=== PATIENT | female | born 2000 | race Caucasian/White ===

== ENCOUNTER 2023-10-08 15:15 | Emergency (ER) | payer MEDICAID, SELFPAY ==
--- NOTE | 2023-10-08 15:18 | ED_ITS ---
HPI - Psych General Chief Complaint: Psychiatric Symptoms Stated Complaint: crisis eval Time Seen by Provider: 10/08/23 16:11 Related Data Allergies Allergy/AdvReac Type Severity Reaction Status Date / Time No Known Allergies Allergy Verified 10/08/23 15:23 [facility] Social History Social History Advance Directives: No Advance Directives Information Provided: No Guardian: No Physical Exam 2 Vital Signs: Vital Signs: Last Vital Signs Temp 99.4 F 10/08/23 15:19 Pulse 86 10/08/23 15:19 Resp 18 10/08/23 15:19 BP 109/79 10/08/23 15:19 Pulse Ox 97 10/08/23 15:19 O2 Del Method Room Air 10/08/23 15:19 BMI result Body Mass Index 23.8 Course Course Course Narrative: This is a rapid medical exam: Additional HPI, ROS, PE not included below will be deferred to primary provider. Patient is a 23-year-old female with no reported past medical history presenting to the emergency department with complaint of suicidal thoughts over the past three months, requesting a crisis evaluation. Reports thoughts of plans but denies specific plan. History of self harm behavior (cutting). Denies homicidal ideation. Admits to marijuana use, denies other drug use. Plan: medical clearance, CARE team eval This is a duplicate chart. Patient seen and dispositioned by Dr. Salcedo on 10/08/23. Medical Decision Making Lab Data 10/08/23 15:52 10/08/23 15:52 Labs: Lab Results 10/08/23 10/08/23 10/08/23 Range/Units 15:47 15:51 15:52 WBC 10.0 (4.8-10.8) X10*3/uL RBC 4.99 (4.20-5.50) X10*6/uL Hgb 13.9 (12.0-16.0) g/dl Hct 42.4 (37.0-47.0) % MCV 85.0 (80.0-98.0) fL MCH 27.9 (27.0-33.0) pg MCHC 32.8 (31.0-35.0) g/dl RDW 14.7 (11.0-16.0) % Plt Count 156 L (160-400) X10*3/uL MPV 13.7 H (9.4-12.3) fL Immature Gran % (Auto) 0.2 (0.0-0.4) % Neut % (Auto) 66.9 (45-73) % Lymph % (Auto) 24.0 (20-40) % [place] % (Auto) 7.3 (2-11) % Eos % (Auto) 1.0 (0-4) % Baso % (Auto) 0.6 (0-2) % Lymph # (Auto) 2.4 (1.2-4.9) X10*3/uL [place] # (Auto) 0.7 (0.1-1.2) X10*3/uL Eos # (Auto) 0.1 (0.0-0.4) X10*3/uL Baso # (Auto) 0.1 (0.0-0.2) X10*3/uL Abs Immat Gran (auto) 0.02 (0.00-0.03) X10*3/uL Absolute Neuts (auto) 6.7 (2.0-8.3) x10*3/uL Absolute Nucleated RBC 0.000 (0.0-0.012) X10*3/uL Nucleated RBC % (auto) 0.0 (0.0-0.2) /100WBC Smear Tech's Comments VERIFIED Sodium 142 (135-145) mmol/L Potassium 3.2 L (3.3-5.1) mmol/L Chloride 105 (96-108) mmol/L Carbon Dioxide 24 (22-29) mmol/L Anion Gap 16 (12-20) BUN 8 L (9-16) mg/dL Creatinine 0.96 (0.5-1.4) mg/dL Estim Creat Clear Calc 91.1 Estimated GFR > 60 Random Glucose 101 (60-115) mg/dL Calcium 9.7 (8.4-10.2) mg/dL Beta HCG, Quant < 2 mIU/mL Urine Color Yellow Urine Appearance Cloudy Urine pH 5.0 (5.0-9.0) Ur Specific [place] >= 1.030 H (1.005-1.025) Urine Protein Trace (Neg-Trace) mg/dL Urine Glucose (UA) Negative (Negative) mg/dL Urine Ketones 15 (Negative) mg/dL Urine Blood Negative (Negative) Urine Nitrite Negative (Negative) Ur Leukocyte Esterase Small (1+) H (Negative) Urine RBC 0-2 (0-2) /HPF Urine WBC 0-5 (0-5) /HPF Ur Squamous Epith Cells 3-5 (0-2) /HPF Urine Bacteria Trace (None Seen) Hyaline Casts 0-2 (0-2) /LPF Salicylates < 5.0 L (15-30) mg/dL Urine Opiates Screen Not Detected (Not Detect) Urine Fentanyl Screen Not Detected (Not Detect) Acetaminophen < 3 (<30) mcg/mL Ur Barbiturates Screen Not Detected (Not Detect) Ur Phencyclidine Scrn Not Detected (Not Detect) Ur Amphetamines Screen Not Detected (Not Detect) U Benzodiazepines Scrn Not Detected (Not Detect) Urine Cocaine Screen Not Detected (Not Detect) U Marijuana (THC) Screen POSITIVE H (Not Detect) Ethyl Alcohol < 10 mg/dL COVID-19 (EL) Negative (Negative) COVID-19 Clin Com See Note Discharge Plan Discharge Clinical Impression: Acute anxiety Patient Disposition: Home, Self-Care Instructions: Anxiety (ED) Referrals: Physician,None [Primary Care Provider] - (Close follow-up as per care team) Interventions: [place]-Suicide Risk Severity Scale Last Done: 10/08/23 15:49 ED Discharge Assessment Last Done: 10/08/23 17:25 Discharge Date/Time: 10/08/23 17:38
[2023-10-08 15:19] VITALS: BP 109/79; PULSE 86; RESP 18; TEMP 37.4; O2SAT 97; BMI 23.8
--- NOTE | 2023-10-08 15:38 | MHC.EDTECH ---
Patient belongings locked in locker number 1
--- NOTE | 2023-10-08 15:38 | PC.NURSE ---
Patient upset wants to know when she's going to be evaluated by care team. Called care team needs a urine and labs before they will see her. Security notified of her yelling profanities and stating she needs to see her aunt right now!! Explained to patient she needs labs and urine before she will be seen by the care team.
[2023-10-08 16:01] LABS: Appearance Urine Cloudy; Color Urine Yellow; Glucose Urine UA Negative (Negative); Leukocyte Esterase Urine Small (1+) (Negative); Nitrite Urine Negative (Negative); Specific Gravity - Urine >= 1.030 (1.005-1.025); UMIC TRIGGER UACC YES; Urine Blood Negative (Negative); Urine Ketones 15 mg/dL (Negative); Urine Protein Trace mg/dL (Neg-Trace)
[2023-10-08 16:07] LABS: Amphetamine Screen Urine Not Detected (Not Detect); Barbiturates, Urine Not Detected (Not Detect); Benzodiazepines Screen Urine Not Detected (Not Detect); Cannabinoid Screen Urine POSITIVE (Not Detect); Cocaine Screen Urine Not Detected (Not Detect); Fentanyl, urine Not Detected (Not Detect); Opiate Screen Urine Not Detected (Not Detect); Phencyclidine Screen Urine Not Detected (Not Detect)
[2023-10-08 16:13] LABS: Hematocrit 42.4 % (37.0-47.0); Red Cell Distribution Width 14.7 % (11.0-16.0); SCAN SMEAR FLAG 1
[2023-10-08 16:14] LABS: COVID-19 Test Negative (Negative); IDNOW Serial# 152EDE1D
[2023-10-08 16:14] LABS: Bacteria Urine Trace (None Seen); Hyaline Casts Urine 0-2 /LPF (0-2); RBC Urine 0-2 /HPF (0-2); UACC Culture Trigger YES; WBC Urine 0-5 /HPF (0-5)
[2023-10-08 16:15] LABS: Basophils Absolute Auto 0.1 X10*3/uL (0.0-0.2); Basophils Percent Auto 0.6 % (0-2); Eosinophils Absolute Auto 0.1 X10*3/uL (0.0-0.4); Hemoglobin 13.9 g/dl (12.0-16.0); Imm Gran Abs Auto 0.02 X10*3/uL (0.00-0.03); Imm Gran Pct Auto 0.2 % (0.0-0.4); Lymphocytes Absolute Auto 2.4 X10*3/uL (1.2-4.9); MANUAL DIFF FLAG SCAN; Mean Corpuscular HGB Conc 32.8 g/dl (31.0-35.0); Mean Corpuscular Hemoglobin 27.9 pg (27.0-33.0); Mean Platelet Volume 13.7 fL (9.4-12.3); Monocytes Absolute Auto 0.7 X10*3/uL (0.1-1.2); Monocytes Percent Auto 7.3 % (2-11); Neutrophils Absolute Auto 6.7 x10*3/uL (2.0-8.3); Neutrophils Percent Auto 66.9 % (45-73); Platelet Count 156 X10*3/uL (160-400); Red Blood Count 4.99 X10*6/uL (4.20-5.50)
[2023-10-08 16:17] LABS: Acetaminophen LAB < 3 mcg/mL (<30); PLT ABN DIST 1; Salicylate < 5.0 mg/dL (15-30)
[2023-10-08 16:25] LABS: Anion Gap 16 (12-20); Blood Urea Nitrogen 8 mg/dL (9-16); Calcium 9.7 mg/dL (8.4-10.2); Carbon Dioxide 24 mmol/L (22-29); Chloride 105 mmol/L (96-108); Creatinine Clr Calc Pharmacy 91.1; Estimated Glomerular Filt Rate > 60; Ethanol < 10 mg/dL; Glucose Random 101 mg/dL (60-115); HCG Quantitative < 2 mIU/mL; Potassium 3.2 mmol/L (3.3-5.1); Sodium 142 mmol/L (135-145)
--- NOTE | 2023-10-08 16:33 | ED_ITS ---
HPI - Psych General Chief Complaint: Psychiatric Symptoms Stated Complaint: crisis eval Time Seen by Provider: 10/08/23 16:11 History of Present Illness HPI Narrative: Patient is a 23-year-old female presents today with question thoughts of hurting herself. Stated to nursing that the thoughts has been getting worse over the last 3 months. Patient denies any suicidal homicidal ideation at this time. Has no specific plan denies using any recreational drugs. She is from home. No fever no chills no chest pain or shortness breath no nausea no vomiting. On no medication. Patient from home. Refused to answer any specific stressors that is causing her problems. Related Data Allergies Allergy/AdvReac Type Severity Reaction Status Date / Time No Known Allergies Allergy Verified 10/08/23 15:23 Review of Systems 2 Review of Systems: No fever no chills no chest pain Yes all other systems are reviewed and are negative [facility] Past Medical History Attestation statement: The following information was validated with the patient. Onset Date is defined in the Problem List Problems that require an onset date and time if occurred within 24 hrs of arrival to the ED Aortic Dissection and Rupture; Neurologic impairment; Cardiopulmonary Arrest; Endotracheal Intubation; Insertion or Replacement of Mechanical Circulatory Assist Device Physical Exam 2 Vital Signs: Vital Signs: Last Vital Signs Temp 99.4 F 10/08/23 15:19 Pulse 86 10/08/23 15:19 Resp 18 10/08/23 15:19 BP 109/79 10/08/23 15:19 Pulse Ox 97 10/08/23 15:19 O2 Del Method Room Air 10/08/23 15:19 BMI result Body Mass Index 23.8 Appearance: Alert. Oriented X3. No acute distress. Eyes: Pupils equal, round and reactive to light. ENT: Pharynx normal. Neck: Normal inspection. Neck supple. No lymph nodes noted. No crepitus CVS: Normal heart rate and rhythm. Pulses normal. Normal S1 and S2 Respiratory: No respiratory distress. Breath sounds normal. No Wheezing. No rales Abdomen: Soft and nontender. No rigidity. No distention. good BS x4 Skin: Skin warm and dry. Normal skin color. Normal skin turgor. Extremities: No lower extremity edema. Neurovascular intact to all extremities. No Lacerations. No Rash Neuro: Oriented X 3. No motor deficit. No sensory deficit. Moving all extermities. No slurred speech. Cranial nerves intact Medical Decision Making Medical Decision Making [facility] Narrative: Patient is 23 years old presents today with having a lot of anxiety. She has not suicidal not homicidal. She denies any fever chills systemic complaints. Patient just wants outpatient help. Was seen by the care team. Will discharge patient home close follow-up on an outpatient basis. Differential Diagnosis Differential Diagnoses: The differential diagnosis associated with the presentation includes Anxiety depression Admission/Observation Consideration of admission/observation: Escalation of care including admission/observation considered No need for admission Lab Data [facility] Lab Attestation statement: I reviewed the patient's lab results. 10/08/23 15:52 10/08/23 15:52 Labs: Lab Results 10/08/23 10/08/23 10/08/23 Range/Units 15:47 15:51 15:52 WBC 10.0 (4.8-10.8) X10*3/uL RBC 4.99 (4.20-5.50) X10*6/uL Hgb 13.9 (12.0-16.0) g/dl Hct 42.4 (37.0-47.0) % MCV 85.0 (80.0-98.0) fL MCH 27.9 (27.0-33.0) pg MCHC 32.8 (31.0-35.0) g/dl RDW 14.7 (11.0-16.0) % Plt Count 156 L (160-400) X10*3/uL MPV 13.7 H (9.4-12.3) fL Immature Gran % (Auto) 0.2 (0.0-0.4) % Neut % (Auto) 66.9 (45-73) % Lymph % (Auto) 24.0 (20-40) % [place] % (Auto) 7.3 (2-11) % Eos % (Auto) 1.0 (0-4) % Baso % (Auto) 0.6 (0-2) % Lymph # (Auto) 2.4 (1.2-4.9) X10*3/uL [place] # (Auto) 0.7 (0.1-1.2) X10*3/uL Eos # (Auto) 0.1 (0.0-0.4) X10*3/uL Baso # (Auto) 0.1 (0.0-0.2) X10*3/uL Abs Immat Gran (auto) 0.02 (0.00-0.03) X10*3/uL Absolute Neuts (auto) 6.7 (2.0-8.3) x10*3/uL Absolute Nucleated RBC 0.000 (0.0-0.012) X10*3/uL Nucleated RBC % (auto) 0.0 (0.0-0.2) /100WBC Smear Tech's Comments VERIFIED Sodium 142 (135-145) mmol/L Potassium 3.2 L (3.3-5.1) mmol/L Chloride 105 (96-108) mmol/L Carbon Dioxide 24 (22-29) mmol/L Anion Gap 16 (12-20) BUN 8 L (9-16) mg/dL Creatinine 0.96 (0.5-1.4) mg/dL Estim Creat Clear Calc 91.1 Estimated GFR > 60 Random Glucose 101 (60-115) mg/dL Calcium 9.7 (8.4-10.2) mg/dL Beta HCG, Quant < 2 mIU/mL Urine Color Yellow Urine Appearance Cloudy Urine pH 5.0 (5.0-9.0) Ur Specific [place] >= 1.030 H (1.005-1.025) Urine Protein Trace (Neg-Trace) mg/dL Urine Glucose (UA) Negative (Negative) mg/dL Urine Ketones 15 (Negative) mg/dL Urine Blood Negative (Negative) Urine Nitrite Negative (Negative) Ur Leukocyte Esterase Small (1+) H (Negative) Urine RBC 0-2 (0-2) /HPF Urine WBC 0-5 (0-5) /HPF Ur Squamous Epith Cells 3-5 (0-2) /HPF Urine Bacteria Trace (None Seen) Hyaline Casts 0-2 (0-2) /LPF Salicylates < 5.0 L (15-30) mg/dL Urine Opiates Screen Not Detected (Not Detect) Urine Fentanyl Screen Not Detected (Not Detect) Acetaminophen < 3 (<30) mcg/mL Ur Barbiturates Screen Not Detected (Not Detect) Ur Phencyclidine Scrn Not Detected (Not Detect) Ur Amphetamines Screen Not Detected (Not Detect) U Benzodiazepines Scrn Not Detected (Not Detect) Urine Cocaine Screen Not Detected (Not Detect) U Marijuana (THC) Screen POSITIVE H (Not Detect) Ethyl Alcohol < 10 mg/dL COVID-19 (EL) Negative (Negative) COVID-19 Clin Com See Note Discharge Plan Discharge Clinical Impression: Acute anxiety Patient Disposition: Home, Self-Care Instructions: Anxiety (ED) Referrals: Physician,None [Primary Care Provider] - (Close follow-up as per care team) Interventions: [place]-Suicide Risk Severity Scale Last Done: 10/08/23 15:49
[2023-10-08 16:35] LABS: SLIDE REVIEW VERIFIED
== END 2023-10-08 17:38 | disposition home or self-care (01) ==
PROVIDERS: Registered Nurse Emergency; Emergency Provider Emergency Medicine Emergency Medical Services
DX: F41.9 Anxiety disorder, unspecified (principal); Z11.52 Encounter for screening for COVID-19
CPT/HCPCS: 36415; 80048; 80143; 80179; 80307; 81001; 81003; 84702; 85025; 87086; 87147; 87635; 99283; 99285; S9485

== ENCOUNTER → 2023-11-10 08:39 | Outpatient (REF) | payer MEDICAID, SELFPAY ==
--- NOTE | 2023-11-10 08:47 | ECG_ITS ---
Test Reason : qtc check Blood Pressure : / mmHG Vent. Rate : 065 BPM Atrial Rate : 065 BPM P-R Int : 148 ms QRS Dur : 148 ms QT Int : 448 ms P-R-T Axes : 005 -51 016 degrees QTc Int : 465 ms Normal sinus rhythm Right bundle branch block Left anterior fascicular block Bifascicular block Abnormal ECG No previous ECGs available Referred By: Margo Burnham Electronically Signed By:WILFRIDO CHURCHILL MD
[2023-11-10 09:38] LABS: Estimated Average Glucose 100 mg/dL; Hemoglobin A1c % 5.1 % (<6.0)
[2023-11-10 09:40] LABS: Basophils Absolute Auto 0.1 X10*3/uL (0.0-0.2); Basophils Percent Auto 0.9 % (0-2); Eosinophils Absolute Auto 0.1 X10*3/uL (0.0-0.4); Eosinophils Percent Auto 0.9 % (0-4); Hematocrit 39.5 % (37.0-47.0); Hemoglobin 12.8 g/dl (12.0-16.0); Imm Gran Abs Auto 0.02 X10*3/uL (0.00-0.03); Imm Gran Pct Auto 0.3 % (0.0-0.4); Lymphocytes Absolute Auto 0.9 X10*3/uL (1.2-4.9); Lymphocytes Percent Auto 16.1 % (20-40); MANUAL DIFF FLAG SCAN; Mean Corpuscular HGB Conc 32.4 g/dl (31.0-35.0); Mean Corpuscular Hemoglobin 28.3 pg (27.0-33.0); Mean Corpuscular Volume 87.2 fL (80.0-98.0); Monocytes Absolute Auto 0.4 X10*3/uL (0.1-1.2); Neutrophils Absolute Auto 4.3 x10*3/uL (2.0-8.3); Neutrophils Percent Auto 74.8 % (45-73); PLT CLUMP 1; Red Blood Count 4.53 X10*6/uL (4.20-5.50); Red Cell Distribution Width 15.4 % (11.0-16.0); SCAN SMEAR FLAG 1
[2023-11-10 09:42] LABS: White Blood Count 5.7 X10*3/uL (4.8-10.8)
[2023-11-10 10:10] LABS: Alanine Aminotransferase 28 U/L (0-31); Albumin Level 4.3 g/dL (3.5-5.0); Alkaline Phosphatase 62 U/L (39-117); Anion Gap 11 (12-20); Aspartate Amino Transferase 35 U/L (5-31); Bilirubin Total 0.9 mg/dL (0.0-1.0); Blood Urea Nitrogen 12 mg/dL (9-16); Calcium 8.5 mg/dL (8.4-10.2); Carbon Dioxide 25 mmol/L (22-29); Chloride 106 mmol/L (96-108); Estimated Glomerular Filt Rate > 60; Glucose Fasting 112 mg/dL (60-99); Magnesium 1.9 mg/dL (1.6-2.6); Potassium 3.5 mmol/L (3.3-5.1); Sodium 138 mmol/L (135-145); Total Protein 7.2 g/dL (6.5-8.0)
[2023-11-10 10:32] LABS: Free T4 (Free Thyroxine) 0.88 ng/dL (0.71-1.85); Thyroid Stimulating Hormone 2.57 uIU/mL (0.32-4.0)
[2023-11-10 10:49] LABS: Vitamin B12 518 pg/mL (200-900)
[2023-11-10 10:59] LABS: Mean Platelet Volume 13.1 fL (9.4-12.3); Platelet Count 126 X10*3/uL (160-400); SLIDE REVIEW VERIFIED
== END ==
LOC: HO.CARD 08:39
PROVIDERS: Visit Provider Psychiatry & Neurology Psychiatry
DX: F33.9 Major depressive disorder, recurrent, unspecified (principal); F41.1 Generalized anxiety disorder
CPT/HCPCS: 36415; 80053; 82306; 82607; 83036; 83735; 84439; 84443; 85025; 93005

== ENCOUNTER → 2023-11-10 08:47 | Outpatient (BNV) | payer MEDICAID, SELFPAY | PROVIDERS: Visit Provider Internal Medicine Cardiovascular Disease | DX: I45.2 Bifascicular block (principal); R94.31 Abnormal electrocardiogram [ECG] [EKG] | CPT/HCPCS: 93010 ==

== ENCOUNTER → 2023-11-16 08:15 | Outpatient (BNV) | payer OTHER, SELFPAY | PROVIDERS: Visit Provider Psychiatry & Neurology Psychiatry | DX: F33.2 Major depressive disorder, recurrent severe without psychotic features (principal); F43.10 Post-traumatic stress disorder, unspecified; F10.10 Alcohol abuse, uncomplicated; F12.10 Cannabis abuse, uncomplicated | CPT/HCPCS: 90837; 99213 ==

== ENCOUNTER 2023-11-21 08:15 | Outpatient (RCR) | payer OTHER, SELFPAY ==
[2023-11-08 13:12] VITALS: BP 81/65; PULSE 84; TEMP 37.3
[2023-11-08 13:18] VITALS: BMI 21.7
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
[2023-11-08 15:00] LABS: Amphetamine Screen Urine Not Detected (Not Detect); Barbiturates, Urine Not Detected (Not Detect); Benzodiazepines Screen Urine Not Detected (Not Detect); Cannabinoid Screen Urine Not Detected (Not Detect); Cocaine Screen Urine Not Detected (Not Detect); Fentanyl, urine Not Detected (Not Detect); Opiate Screen Urine Not Detected (Not Detect); Phencyclidine Screen Urine Not Detected (Not Detect)
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
[2023-11-09 13:05] VITALS: BP 82/63; PULSE 76
[2023-11-10 10:47] VITALS: BP 84/63; PULSE 77
--- NOTE | 2023-11-10 11:23 | PC.NURSE ---
Addendum entered by Marika Varela RN 11/10/23 11:30: D/C paperwork from [facility] showed EKG done on 10/10/23. Normal sinus rhythm with sinus arrhythmia, Right Bundle Brance Block, Left anterior fascicular block, Bifasicular block, minimal voltage criteria for LVH, may be a normal variant. Dr Burnham aware. Original Note: Reviewed with Dr Burnham the following results: EKG: NSR, Right Bundle Brance Block, Left anterior fascicular block, Bifascicular block. Blood pressure on 11/08/23 BP 81/65 P 84. 11/09/23 BP 82/63 P 76, and 11/10/23 BP 84/63 P 77. Patient asymptomatic, she is alert and oriented x4. No Dizziness, No lighheadedness, no nausea, no vomiting. Does not appear to be in any distress. Per Dr Burnham patient to hold Gabapentin and will recheck BP's. Patient does not have any providers including PCP. Soonest available appointment made with New PCP on January 03, 2024 at 1:[address] Martin[address] Burnham aware.
--- NOTE | 2023-11-10 13:02 | HO.PHP ---
PHP staff member faxed over a referral for OP therapy and med management for Tresa. PHP staff member is awaiting a response with the scheduled appointment dates and times.
--- NOTE | 2023-11-10 15:53 | HO.PHP ---
Client's case has been opened and reviewed in treatment team.
--- NOTE | 2023-11-10 23:38 | HO.PHPPROGNO ---
Subjective Subjective Date of Service: 11/10/23 Reason For Visit: MDD Interim History: Patient requested to see provider due to ongoing medication issues. Says after some thought, she would like to proceed with treatment plan as we discussed the other day about decreasing the dose of gabapentin to see if this is impacting her VS. This morning her BP 94/73 and HR 78, after taking her usual gabapentin 300 mg daily in AM. She is agreeable to lowering the dose to 100 mg qAM to see if this is still effective for anxiety without causing dizziness or light headedness, and if helpful could try repeating the dose later in the afternoon for anxiety. She says these symptoms (dizzy lightheadedness) are transient and mild, and says she only does not like experiencing then because it is reminiscent of withdrawal symptoms (from etoh) in the past . She reports her mood has been okay, still low, but not the worse . Anxiety continues to be the main issue. Denies any SI, irritability, or lability. Mood stability rated at a 7 out of 10. Anxiety severity at a 4 out of 10. Sleep variable, appetite and energy are pretty good . Denies any HI, AH, VH. Denies any alcohol or substance use in interim. Medication Compliance: Yes Side effects from medications: No Attending Groups: Yes Review of Systems Acute medical concerns: No Mental Status Exam Mental Status Exam Narrative: mseAlert, oriented, in no acute distress. Calm, cooperative, engaged. No psychomotor agitation or neurovegetative retardation. Eye contact maintained. Mood anxious, affect variable, blunted, mood congruent. Speech normal. Thought process linear, coherent. Thought content related to stressors, denies any helplessness, hopelessness or SI.? No aggressive ideation or HI. No paranoia or delusional content elicited. No evidence of psychosis. Insight and judgment fair-good Diagnostics Vital Signs (24Hr): Vital Signs - 24 hr 11/10/23 10:47 Pulse Rate 77 Blood Pressure 84/63 L BMI result Body Mass Index 21.7 Assessment & Plan Assessment & Plan (1) Major depressive disorder, recurrent severe without psychotic features: Status: Acute Code(s): F33.2 - Major depressive disorder, recurrent severe without psychotic features (2) Post traumatic stress disorder (PTSD): Status: Acute Code(s): F43.10 - Post-traumatic stress disorder, unspecified (3) Cannabis abuse: Status: Acute Code(s): F12.10 - Cannabis abuse, uncomplicated (4) Alcohol abuse: Status: Acute Code(s): F10.10 - Alcohol abuse, uncomplicated Plan start gabapentin 100 mg BID (in am and afternoon) continue gabapentin 300 mg qhs Patient educated on: diagnosis, medication risk/benefits and substance abuse Informed Consent: understands Reason for contiued partial hosp. stay Substantial Risk for: inability to function, rapid decompensation and med/psych decompensation Certification I certify that partial hospital treatment is medically necessary due to the symptoms and problems resulting from the patient's mental illness and the failure to treat the patient at the partial hospital level of care would likely result in the patient requiring inpatient psychiatric care which could not be prevented at a less intensive level of care. Total time managing care of this patient today __30__ minutes. Discharge Plan Discharge Attending provider: Margo Burnham Additional Instructions: New PCP appointment at [address] [place] [phone] Jess Rashid Wednesday January 03, 2024 at 1:00 pm. Office Number [phone]. Referral faxed to [facility], [address] [place] [address], 3rd floor, [facility]. Office Number [phone]. Appointment scheduled with Cardiology for December at 8:00 am. Above the emergency room 3rd floor. Enter the door marked [address] [place] [address]. Medications: New lorazepam 0.5 mg tablet 0.5 mg PO DAILY PRN (Reason: anxiety) Qty: 10 0RF gabapentin 100 mg capsule 100 mg PO BID PRN (Reason: as directed) Qty: 20 0RF Continued melatonin 3 mg Capsule 3 mg PO DAILY@1700 Changed sertraline [Zoloft] 50 mg tablet 75 mg PO DAILY Qty: 45 0RF Discontinued gabapentin 300 mg capsule 300 mg PO DAILY Stand Alone Forms: Patient Portal Discharge page Patient Education: Depression (DC)
--- NOTE | 2023-11-11 08:29 | PC.NURSE ---
Patient has a new PCP appointment at [address] [place] [phone] Jess Rashid Sophia January 03, 2024 at 1:00 pm. Office Number [phone].
--- NOTE | 2023-11-11 08:35 | PC.NURSE ---
Tresa called the program stating she, feels under the weather today and will not be at [facility] today. She reports she has a sore throat. Plans on coming to the program on Tuesday.
[2023-11-14 09:19] VITALS: BP 87/67; PULSE 71
[2023-11-15 12:52] VITALS: BP 86/67; PULSE 74
--- NOTE | 2023-11-15 12:59 | PC.NURSE ---
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 Tresa thinks she was seen at [facility] [place]. Faxed request of records to [facility] [place] and was notified that Tresa has no history of being a patient there. Dr Burnham aware.
--- NOTE | 2023-11-15 22:23 | P.PNPSP_ITS ---
Subjective Subjective Date of Service: 11/15/23 Reason For Visit: MDD Interim History: Patient reporting anxiety has been a little more this AM . Rates anxiety 7 out 10 earlier this AM, currently at a 5 out of 10 now. Mood is good, denies any depressive symptoms. Denies any SI. Sleep, appetite and energy are intact. VS slightly improved with holding 200 mg gabapentin, still running low BP 87/65 pulse 63. She denies any dizziness or lightheadedness. WIll hold remaining gabapentin for tonight just to see if this helps further. Has been utilizing lorazepam0.5 mg prn for groups which has been effective. , Vitamin D insuffiency and thrombocytopenia noted on lab w ork, patient reports she has chronically low platelets noted in past, not been further worked up or treatment. Just letting patient know that SSRI can contribute to low platelets. She did order gummy otc vitamin d 5,000 IU qd as we discussed, and can reduced dose to 2000 IU in a couple months. Medication Compliance: Yes Side effects from medications: No Attending Groups: Yes Review of Systems Acute medical concerns: No Mental Status Exam Mental Status Exam Narrative: Alert, oriented, in no acute distress. Calm, cooperative, engaged. Eye contact improved. Mood anxious, affect variable, mood congruent. Speech normal. Thought process linear, coherent. Thought content related to stressors, denies any helplessness, hopelessness or SI.? No aggressive ideation or HI. No paranoia or delusional content elicited. No evidence of psychosis. Insight and judgment fair-good Diagnostics Vital Signs (24Hr): Vital Signs - 24 hr 11/15/23 12:52 Pulse Rate 74 Blood Pressure 86/67 L BMI result Body Mass Index 21.7 Assessment & Plan Assessment & Plan (1) Major depressive disorder, recurrent severe without psychotic features: Status: Acute Code(s): F33.2 - Major depressive disorder, recurrent severe without psychotic features (2) Post traumatic stress disorder (PTSD): Status: Acute Code(s): F43.10 - Post-traumatic stress disorder, unspecified (3) Cannabis abuse: Status: Acute Code(s): F12.10 - Cannabis abuse, uncomplicated (4) Alcohol abuse: Status: Acute Code(s): F10.10 - Alcohol abuse, uncomplicated Plan increase sertraline to 75 mg qd hold gabapentin 100 mg tomorrow (cont lorazepam) --> check VS tomorrow consider addition of buspirone continue other medications Lab work from 11/10 reviewed - pt started vit D 5000 IU daily EKG results reviewed continue to monitor Patient educated on: diagnosis, medication risk/benefits and substance abuse Informed Consent: understands Reason for contiued partial hosp. stay Substantial Risk for: inability to function and med/psych decompensation Certification I certify that partial hospital treatment is medically necessary due to the symptoms and problems resulting from the patient's mental illness and the failure to treat the patient at the partial hospital level of care would likely result in the patient requiring inpatient psychiatric care which could not be prevented at a less intensive level of care. Total time managing care of this patient today __30__ minutes. Discharge Plan Discharge Attending provider: Margo Burnham Additional Instructions: New PCP appointment at [address] [place] [phone] Jess Rashid Sophia January 03, 2024 at 1:00 pm. Office Number [phone]. Medications: New lorazepam 0.5 mg tablet 0.5 mg PO DAILY PRN (Reason: anxiety) Qty: 10 0RF gabapentin 100 mg capsule 100 mg PO BID PRN (Reason: as directed) Qty: 20 0RF Continued gabapentin 300 mg capsule 300 mg PO DAILY melatonin 3 mg Capsule 3 mg PO DAILY@1700 Changed sertraline [Zoloft] 50 mg tablet 75 mg PO DAILY Qty: 45 0RF Stand Alone Forms: Patient Portal Discharge page
[2023-11-16 10:48] VITALS: BP 87/65; PULSE 63
--- NOTE | 2023-11-17 07:27 | HO.PHP ---
[facility] staff member contacted Kaylin, through [facility], to follow up around the referral for Tresa's OP therapy and med management appointments.
--- NOTE | 2023-11-17 08:46 | PC.NURSE ---
Tresa called and spoke to [facility] staff Huong reportedly stating she will not be at the program today as she is having side effects from medication changes and did not sleep well. She stated she will be here tomorrow. I called Tresa to f/u. I left her a message to call me back. Awaiting phone call.
--- NOTE | 2023-11-17 08:53 | PC.NURSE ---
I spoke to Tresa who stated she has increased anxiety and racing thoughts thus was only able to sleep for a few hours last night. She stated she will be in tomorrow. Gabapentin has been decreased d/t low BP readings per Dr Burnham.
--- NOTE | 2023-11-17 15:33 | PC.NURSE ---
New PCP appointment at [address] [place] [phone] Jess Rashid Wednesday January 03, 2024 at 1:00 pm. Office Number [phone]. Referral faxed to [facility], [address] [place] [address], 3rd floor, [facility]. Office Number [phone]. They will call you to make an appointment. If you do not hear from them call them to f/u.
--- NOTE | 2023-11-17 15:46 | HO.PHP ---
[facility] staff member received a phone call from [facility] with Tresa's appointments. Tresa's OP therapy intake appointment is on November 28, 2023 at 10 AM with Keith Narayanan at [address] [place] [address]. Tresa's med provider appointment will be on December 21, 2023 at 9 AM with Vishnu Chopra in person at [address] [place] [address].
--- NOTE | 2023-11-18 10:46 | PC.NURSE ---
Tresa reports that she slept well last night. Decreased anxiety and no racing thoughts. BP 92/65 P 65.
[2023-11-18 10:47] VITALS: BP 92/65; PULSE 65
[2023-11-21 13:29] VITALS: BP 94/73; PULSE 78
--- NOTE | 2023-11-21 15:55 | PC.NURSE ---
Dr Burnham met with patient and reviewed patient discharge paperwork including discharge medications. I printed patient discharge paperwork and had patient review again and sign paperwork. Patient was feeling anxious regarding discharge this morning as she did not remember she was scheduled to discharge today. Also upset as she was having insurance issues however staff worked with her regarding insurance issues and appeared to be resolved. Patient no longer has [employer] insurance and currency has [employer]. She felt better as the day went in addition to insurance issues being resolved. She denied SI, felt anxious however ready to discharge.
--- NOTE | 2023-11-21 21:11 | HO.PHPPROGNO ---
Subjective Subjective Date of Service: 11/21/23 Reason For Visit: MDD Interim History: Patient seen for follow-up, anticipating discharge at the end of program today.? I'm really stressed out and overwhelmed . Patient reports having anxiety about leaving the program. She has found the time here helpful and appreciates the supportive environment. I knew that it was going to be hard to leave. I spend a lot of time alone . She does continue to work apartment rental agent, and although says she does socialize with people at work she adds I just like the people here better . She was initially tearful but was able to work through some of her anxiety and was more engageable and calmer during our conversation. She plans to go to the gym today after the program. She reports sleeping is a little bit better. I am staying asleep longer ,taking melatonin most nights she is not having any issues. She is able to tolerate gabapentin at 100 mg doses and may continue taking this BID as needed for anxiety. Lorazepam for severe anxiety ~ 3x/week for the next couple weeks as a bridge until Zoloft is therapeutic. Denies any other acute issues or concerns. Medication compliant, medications well-tolerated. Denies any adverse effects.? Mood is anxious but stable.? Denies any hopelessness or SI, denies HI, AH or VH. Medication Compliance: Yes Side effects from medications: No Attending Groups: Yes Review of Systems Acute medical concerns: No Mental Status Exam Mental Status Exam Narrative: Alert, oriented, in no acute distress. Calm, cooperative, engaged. Eye contact improved. Mood anxious, affect variable, mood congruent. Speech normal. Thought process linear, coherent. Thought content related to stressors, denies any helplessness, hopelessness or SI.? No aggressive ideation or HI. No paranoia or delusional content elicited. No evidence of psychosis. Insight and judgment fair-good Diagnostics Vital Signs (24Hr): Vital Signs - 24 hr 11/21/23 13:29 Pulse Rate 78 Blood Pressure 94/73 BMI result Body Mass Index 21.7 Assessment & Plan Assessment & Plan (1) Major depressive disorder, recurrent severe without psychotic features: Status: Acute Code(s): F33.2 - Major depressive disorder, recurrent severe without psychotic features (2) Post traumatic stress disorder (PTSD): Status: Acute Code(s): F43.10 - Post-traumatic stress disorder, unspecified (3) Alcohol abuse: Status: Acute Code(s): F10.10 - Alcohol abuse, uncomplicated (4) Cannabis abuse: Status: Acute Code(s): F12.10 - Cannabis abuse, uncomplicated Plan Discharge from [facility] continue regular medications will defer further medication management to outpatient provider Refills sent to pharmacy Patient educated on: diagnosis, medication risk/benefits and substance abuse Informed Consent: understands Reason for contiued partial hosp. stay Substantial Risk for: stable for discharge Certification I certify that partial hospital treatment is medically necessary due to the symptoms and problems resulting from the patient's mental illness and the failure to treat the patient at the partial hospital level of care would likely result in the patient requiring inpatient psychiatric care which could not be prevented at a less intensive level of care. Total time managing care of this patient today __30__ minutes. Discharge Plan Discharge Attending provider: Margo Burnham Additional Instructions: New PCP appointment at [address] [place] [address]. [phone] Jess Rashid Sophia January 03, 2024 at 1:00 pm. Office Number [phone]. Referral faxed to [facility], [address] [place] [address], 3rd floor, [facility]. Office Number [phone]. Appointment scheduled with Cardiology for December at 8:00 am. Above the emergency room 3rd floor. Enter the door marked [address] [place] [address]. Medications: New lorazepam 0.5 mg tablet 0.5 mg PO DAILY PRN (Reason: anxiety) Qty: 10 0RF gabapentin 100 mg capsule 100 mg PO BID PRN (Reason: as directed) Qty: 20 0RF Continued melatonin 3 mg Capsule 3 mg PO DAILY@1700 Changed sertraline [Zoloft] 50 mg tablet 75 mg PO DAILY 14 Days Qty: 21 0RF Discontinued gabapentin 300 mg capsule 300 mg PO DAILY Stand Alone Forms: Patient Portal Discharge page Patient Education: Depression (DC) Print Language: Armenian Telehealth Telehealth Location of provider rendering services: other (private office) Location of patient: other ([facility]) Patient Identification confirmed using: Name, : Yes Telehealth method: video Patient verbally consented to treatment: Yes
--- NOTE | 2023-11-22 08:48 | PC.NURSE ---
Referral faxed to [facility], [address] [place] [address], 3rd floor, [facility]. Office Number [phone]. Appointment scheduled with Cardiology for December at 8:00 am. Above the emergency room 3rd floor. Enter the door marked [address] [place] [address].
== END 2023-11-21 23:59 | disposition home or self-care (01) ==
LOC: HO.PHPA 08:15
PROVIDERS: Visit Provider Psychiatry & Neurology Psychiatry
DX: F33.2 Major depressive disorder, recurrent severe without psychotic features (principal); F43.10 Post-traumatic stress disorder, unspecified; F12.10 Cannabis abuse, uncomplicated; F10.10 Alcohol abuse, uncomplicated; Z79.899 Other long term (current) drug therapy
CPT/HCPCS: 80307; 90791; 90853